=== PATIENT | male | born 1950 | race Caucasian/White ===

== ENCOUNTER → 2017-11-02 | Outpatient (REF) | payer OTHER ==
[2017-11-02 13:58] LABS: VITAMIN B12 LEVEL 428 PG/ML
[2017-11-02 14:09] LABS: ESTIMATED AVERAGE GLUCOSE 126 MG/DL (60-110)
[2017-11-02 14:12] LABS: FREE T4 1.14 NG/DL (0.76-1.46); RHEUMATOID FACTOR QUANT 24.5 IU/ML (<15.0); TOTAL PROTEIN 7.8 GM/DL (6.4-8.2)
[2017-11-02 15:03] LABS: ERYTHROCYTE SEDIMENTATION RATE 2 mm/hr (0-20)
[2017-11-03 12:42] LABS: DRVV SCREEN 46.1 SEC
[2017-11-03 12:50] LABS: PTT LUPUS TYPE ANTICOAG SCREEN 1.1 (0-1.2)
[2017-11-04 00:06] LABS: ANTINUCLEAR ANTIBODIES DIRECT Negative (Negative); Lyme Disease IgG/IgM Antibodie <0.91 ISR (0.00-0.90); Lyme Disease IgM Ab Quantitati <0.80 index (0.00-0.79)
[2017-11-04 08:09] LABS: ANTI THROMBIN 3 FUNCT ACTIVITY 104 % (75-135)
[2017-11-04 10:48] LABS: ALBUMIN % 61.6 % (55.8-66.1); ALPHA-1-GLOBULIN % 3.4 % (2.9-4.9); ALPHA-2-GLOBULINS % 9.5 % (7.1-11.8); BETA-2-GLOBULINS % 5.4 % (3.2-6.5)
[2017-11-04 10:49] LABS: ALPHA-1-GLOBULINS 0.27 GM/DL (0.17-0.41); ALPHA-2-GLOBULINS 0.74 GM/DL (0.42-0.99); BETA-1-GLOBULINS 0.55 GM/DL (0.28-0.60); BETA-2-GLOBULINS 0.42 GM/DL (0.19-0.55); GAMMA GLOBULIN % 13.1 % (11.1-18.8); GAMMA GLOBULINS 1.02 GM/DL (0.65-1.58)
== END ==
LOC: M LABNEURO 08:50
DX: M54.5 Low back pain (principal); M54.2 Cervicalgia; E07.9 Disorder of thyroid, unspecified; R73.01 Impaired fasting glucose
CPT/HCPCS: 82746

== ENCOUNTER → 2018-05-02 | Outpatient (CLI) | payer OTHER | LOC: M RAD 12:47 | DX: I65.23 Occlusion and stenosis of bilateral carotid arteries (principal) | CPT/HCPCS: 93880 ==

== ENCOUNTER → 2018-10-04 | Outpatient (REF) | payer OTHER ==
[~2018-10-04] MED LIST: FLOM0.4C39 PO; GABA600T4 PO; HYDR-3715 PO; OMEP40CA2 PO; SOMA350T PO; TAMS0.4C2 PO; TYLE325T5 PO
[2018-10-04 13:39] LABS: DRVV SCREEN 37.5 SEC; PTT LUPUS TYPE ANTICOAG SCREEN 0.9 (0-1.2)
[2018-10-11 00:06] LABS: ACETYLCHOLINE RCPTOR BINDING A < 0.03 nmol/L (0.00-0.24); ANGIOTENSIN 1 CONVERTING ENZYM 50 U/L (14-82); ANTI THROMBIN 3 FUNCT ACTIVITY 101 % (75-135); ANTINUCLEAR ANTIBODIES DIRECT Negative (Negative); CARDIOLIPIN IGA ANTIBODY <9 APL U/mL (0-11); CARDIOLIPIN IGG ANTIBODY <9 GPL U/mL (0-14); CARDIOLIPIN IGM ANTIBODY <9 MPL U/mL (0-12); Lyme Disease IgG/IgM Antibodie <0.91 ISR (0.00-0.90); Lyme Disease IgM Ab Quantitati <0.80 index (0.00-0.79); PROTEIN C FUNCTIONAL ACTIVITY 109 % (73-180); PROTEIN S FUNCTIONAL ACTIVITY 93 % (63-140)
== END ==
LOC: M LABNEURO 11:12
PROVIDERS: ATTEND Psychiatry & Neurology Neurology
DX: I67.82 Cerebral ischemia (principal); H53.2 Diplopia; G81.90 Hemiplegia, unspecified affecting unspecified side

== ENCOUNTER → 2019-02-15 | Outpatient (REF) | payer OTHER | LOC: M LABNEURO 13:11 | PROVIDERS: ATTEND Psychiatry & Neurology Neurology | DX: M54.2 Cervicalgia (principal); M54.9 Dorsalgia, unspecified; Z79.899 Other long term (current) drug therapy ==

== ENCOUNTER → 2020-05-10 | Outpatient (CLI) | payer MEDICARE ==
[~2020-05-10] MED LIST changes: -OMEP40CA2 PO; +OMEP40CA97 PO
--- NOTE | 2020-05-10 14:57 | REP ---
INDICATION: OCCLUSION AND STENOSIS OSMEL CAROTID ART COMPARISON: 05/02/2018. TECHNIQUE: Real-time ultrasound evaluation and duplex Doppler interrogation of the extracranial carotid vasculature is performed. FINDINGS: There is mild plaquing and narrowing in both carotid bulbs extending into the internal and external carotid arteries. Luminal narrowing is less than 50%. There is no evidence of hemodynamically significant stenosis of either internal carotid artery. Normal flow velocities are seen. The vertebral arteries demonstrate normal direction of flow. RIGHT LEFT Peak systolic velocity ICA 59.2 cm/s 80.1 cm/s End diastolic velocity ICA 18.7 cm/s 24.3 cm/s Peak systolic velocity CCA 137.7 cm/s 111.1cm/s Peak systolic velocity ECA 95.0 cm/s 124.3 cm/s ICA/CCA ratio 0.81 0.78 IMPRESSION: Bilateral luminal narrowing of the internal carotid arteries less than 50%. No evidence of hemodynamically significant stenosis. <Electronically signed by Nathan Hernandez > 05/10/20 [id number]
== END ==
LOC: M RAD 12:26
PROVIDERS: ATTEND Physician Assistant
DX: I65.23 Occlusion and stenosis of bilateral carotid arteries (principal)